=== PATIENT | male | born 1955 | race Caucasian/White ===

== ENCOUNTER 2023-06-01 10:11 | Day surgery (SDC) | payer MEDICARE, SELFPAY ==
[2023-06-01] VITALS (10 sets, daily range): BP systolic 113–161; BP diastolic 72–101; PULSE 61–72; RESP 16–18; TEMP 36.4–36.8; O2SAT 95–100; BMI 28.8
--- NOTE | 2023-06-01 10:51 | ANES.PREANE2 ---
Pre-Anesthetic Assessment Height/Weight: Height 1.73 m Weight 86.183 kg Temp Pulse Resp BP Pulse Ox O2 Del Method 98.2 F 72 18 142/87 95 Room Air 06/01/23 10:06/01/23 10:06/01/23 10:06/01/23 10:06/01/23 10:06/01/23 10:30 Operation Date: 06/01/23 12:00 Proposed Procedures p I&D right index finger with primary closure(Right) - Blair Glasgow DO Familial anesthetic complications: none Was Beta Nilsa taken within 24 hours: N/A Was Clonidine taken within 24 hours: N/A Last intake: Intake Last Liquid Date 05/31/23 Last Liquid Time 22:00 Last Solid Date 05/31/23 Last Solid Time 17:00 Social No alcohol and No tobacco (h/o smoking) Airway Submandibular: within normal limits Cervical ROM: within normal limits Mallampati: Class II Dentition: chipped Comments: Comments: Very poor dentition, missing most Pulmonary Chronic Obstructive Pulmonary Disease CV/HEM Hypertension Metabolic Chronic steroid Musc/skel Lower Back Pain and Osteoarthritis/DJD Neuropsych Chronic pain/opioid Anesthetic Plan ASA status: 3 Anesthesia: MAC Medications/Allergies Home Medications Medication Instructions Recorded Confirmed Last Taken Type alprazolam 0.5 mg tablet 0.5 mg PO PRN 05/20/23 05/31/23 Unknown History baclofen 10 mg tablet 10 mg PO DAILY 05/20/23 05/31/23 Unknown History cyanocobalamin (vitamin B-12) 1,000 mcg IM 05/20/23 05/29/23 Unknown History 1,000 mcg/mL injection solution losartan 50 mg tablet 50 mg PO DAILY 05/20/23 05/31/23 Unknown History meloxicam 15 mg tablet 15 mg PO PRN 05/20/23 05/31/23 Unknown History mupirocin 2 % topical ointment 1 applic topical DAILY 05/20/23 05/31/23 Unknown History pramipexole 0.25 mg tablet 0.25 mg PO BEDTIME 05/20/23 05/31/23 Unknown History prednisone 10 mg tablet 10 mg PO 2XD 05/20/23 05/31/23 Unknown History testosterone cypionate 200 mg/mL 150 mg IM UNK 05/20/23 05/31/23 Unknown History intramuscular oil oxycodone 10 mg tablet 10 mg PO QID PRN Pain 05/29/23 05/31/23 Unknown History ropinirole PO DAILY 05/31/23 Unknown History Allergies Allergy/AdvReac Type Severity Reaction Status Date / Time No Known Allergies Allergy Verified 05/29/23 08:32 [facility] Anesthesia Family History Mother Heart disease Hypertension Father Leukemia Social History Smoking and tobacco/nicotine status: former use of tobacco/nicotine Alcohol intake: former Substance/Drug Use: never Adopted: No Caregiver/support person: No Lives independently: Yes Household members: spouse Data Anesthesia Cardiac Studies: No Data to Display
[2023-06-01] MEDS: sodium chloride 0.9% 1,000 ML 30 ML IV (11:03)
[2023-06-01] MEDS: ketorolac 30 mg/mL INJ IVP (11:07)
[2023-06-01 11:34] LABS: Blood Urea Nitrogen 18 mg/dL (8-23); Calcium 9.3 mg/dL (8.5-10.5); Carbon Dioxide 24 mmol/L (22-29); Chloride 102 mmol/L (98-107); Creatinine Clr Calc Pharmacy 97.0135; Glomerular Filtration Rate 96.7 mL/min (90-130); Glucose 85 mg/dL (65-115); Osmolality Calculated 283 mOsm/kg (285-295); Sodium 136 mmol/L (136-145)
[2023-06-01 11:38] LABS: Anion Gap 14.2 (5-19); Potassium 4.2 mmol/L (3.5-5.1)
--- NOTE | 2023-06-01 12:31 | W.PM.OPSUD ---
Surgery/Procedure H&P Update DATE OF PROCEDURE: June 01, 2023 DATE H&P PERFORMED: 05/29/23 H&P UPDATE INFORMATION: I have reviewed H&P completed within last 30 days, I have examined patient prior to procedure and No changes to prior documentation PREOP DIAGNOSIS: Right index finger laceration with wound dehiscence PRIMARY INDICATION FOR PROCEDURE: Right index finger laceration with wound dehiscence PLANNED PROCEDURE: Operation Date: 06/01/23 12:00 Proposed Procedures p I&D right index finger with primary closure(Right) - Blair Glasgow DO
[2023-06-01] MEDS: ceFAZolin 2,000 MG in sodium chloride 0.9% (plus) 50 ML 100 MG IV (12:37)
[2023-06-01] MEDS: lidocaine-epi 2% 20 mL INJ 10 ML INJECTION (13:08)
[2023-06-01] MEDS: sodium bicarbonate 4.2% 0.5 mEq/mL SDV 5mL XX (13:08)
--- NOTE | 2023-06-01 13:33 | W.PM.BPON ---
Date of Procedure: 06/01/2023 Surgeon: Blair Glasgow DO Peanut Butter Maker(s): Mendoza Glasgow PA-C Procedure(s) performed: Right index finger dorsal hand irrigation and debridement (8 cm x 3 cm x 1 cm) Right dorsal hand foreign body removal Right index finger extensor tendons tenolysis Right dorsal hand primary closure Right wrist and hand volar splint application Findings of the procedure(s): Patient was found to have fragments of metal within the wound bed and no benny purulence or drainage or fluid was noted patient had hypertrophic scar and hypertrophic skin edges which were freshened up appropriate debridement was performed and patient underwent procedure without complications with I&D and primary closure as well as foreign body removal with splint application. Estimated blood loss: 1 mL Specimen(s) removed: None Post-operative diagnosis: Right index finger laceration with wound dehiscence
--- NOTE | 2023-06-01 13:37 | PM.OP ---
Operative Report Date of procedure: June 01, 2023 Pre-op diagnosis: Right hand wound dehiscence Post-op diagnosis: Right hand wound dehiscence with foreign body and extensor tendon adhesions Procedure done: Right index finger dorsal hand irrigation and debridement (8 cm x 3 cm x 1 cm) Right dorsal hand foreign body removal Right index finger extensor tendons tenolysis Right dorsal hand primary closure Right wrist and hand volar splint application Surgeon: Blair Glasgow DO Brimming Machine Operator: Mendoza Glasgow PA-C: ANGELA was necessary for assistance in this case with hand positioning to execute the procedure, retraction and protection of neurovascular structures as well as to assist with wound closure and dressing application. Anesthesia: MAC (Local) and Local Estimated blood loss: 1 cc 32min IV fluids: 500 mL Complications: None Findings: See operative report narrative Condition: stable Disposition: same day Brief History: Patient seen and examined the outpatient setting he had a laceration from a pulp grinder feeder dorsal aspect of his right hand over zone 5 there is no extensor tendon involvement this was sutured multiple times he has had persistent wound dehiscence due to this he has hypertrophic skin edges there is no purulent drainage but continues to have open wound and at this point in time would recommend surgical intervention as he is failed conservative approach for localized wound care and has had multiple bouts where this has become infected and cellulitis associated. Noninfectious at this point time with documents in detail he understands and sounds procedure risk benefits complication alternatives of surgery and through shared decision make elects proceed with right hand irrigation debridement and primary wound closure. All questions answered and elects proceed with surgical intervention. Procedure: Patient seen and examined in the preoperative holding area. Consent was reviewed and signed with patient correct extremity marked. Patient then was seen evaluated anesthesia once cleared for surgery stand back to the operative suite kept on the [facility] armboard applied to the right upper extremity patient underwent anesthesia per anesthesia department patient appropriate secured to the bed all bony prominences well-padded patient appropriate secured to the bed. Patient had a nonsterile tourniquet applied to the right upper arm was properly anesthetized the right upper extremities then prepped and draped in orthopedic fashion. Final timeout performed. Patient received appropriate preoperative antibiotics. Patient underwent local anesthesia prior to Esmarch tourniquet being applied. Esmarch was then used and tourniquet was insufflated to 250 mmHg. I planned on extending the incision thinks ellipsing out the previous wound hypertrophic skin edges. Sharp scalpel excision was made in Keshav fashion extending the incision proximally and distally. I ellipsed out the wound edges to healthy bleeding tissue. I then subsequently created full-thickness skin flaps. Identified the extent of the injury. No purulence or abscess was noted and there is no fluid to culture.. There was no injury to the extensor tendons to the index finger I found these proximally and then traced this distally as there was significant scar tissue and adhesions along the extensor tendons this was excised with sharp scalpel and dissection scissors. I did note there was 2 small pieces of metal noted within the wound bed foreign bodies were subsequently removed. I then at this point performed extensor tendon tenolysis foreign body removal and then completed the I&D of the wound bed which was 8 cm x 3 cm x 1 cm in depth. This was all excised devitalized tissue of scar tissue fibrinous slough as well as skin edges. Thorough irrigation was performed. This point wound bed was then subsequently closed primarily with interrupted nylon suture. Xeroform was applied 4 x 4's Curlex Sof-Rol and a volar splint to hold the fingers in extension while the incision heals as patient's had issues with wound dehiscence here in the past. Patient was awakened from anesthesia and taken back in stable condition. Disposition: Patient taken back in send condition recovering well received appropriate discharge instructions postoperative antibiotics for infection prophylaxis maintain splint until follow-up as well as pain control. Patient understands agrees with current plan. All questions answered.
--- NOTE | 2023-06-01 13:47 | PM.PACU ---
PACU note Narrative: Patient is a 68-year-old male that just underwent a right index finger irrigation and debridement. Patient transferred to PACU in stable condition. Pain is well controlled. Splint and Dressing on hand is dry and in place. Patient's fingers are warm and well-perfused. Patient can wiggle fingers. normal cap refill under 2 seconds. Patient has normal elbow range of motion. Unable to assess sensation due to residual localized anesthetic. Exam: awake Disposition: discharged
--- NOTE | 2023-06-01 13:55 | ANE.PACU2 ---
Inpatient post-anesthesia follow up: Airway intact: Yes Vital signs: Temperature 98.2 F Pulse Rate 72 Respiratory Rate 18 Blood Pressure 142/87 Pulse Oximetry 95 Oxygen Delivery Me thod Room Air Oxygen Flow Rate Fraction of Inspir ed Oxygen Hydration adequate: Yes Nausea and vomiting: No Pain level: 1 Mental status: Baseline
[2023-06-01] MEDS: HYDROcodone-acetaminophen 5-325 mg Tablet 1 TAB PO (14:48)
== END 2023-06-01 15:10 | disposition home or self-care (01) ==
PROVIDERS: PCP Family Medicine; Visit Provider Student in an Organized Health Care Education/Training Program
PROC: (CPT 10121; principal; 2023-06-01 12:00)
DX: T81.33XA Disruption of traumatic injury wound repair, initial encounter (principal); S61.411D Laceration without foreign body of right hand, subsequent encounter; W31.9XXD Contact with unspecified machinery, subsequent encounter; J44.9 Chronic obstructive pulmonary disease, unspecified; I10 Essential (primary) hypertension; Z79.52 Long term (current) use of systemic steroids; G89.29 Other chronic pain; Z79.891 Long term (current) use of opiate analgesic; Z87.891 Personal history of nicotine dependence
CPT/HCPCS: 10121; 26445; 36415; 80048; J0690; J1885; J2704; J3010; J7030

== ENCOUNTER → 2023-06-22 08:34 | Outpatient (BNVA) | payer MEDICARE, SELFPAY | PROVIDERS: PCP Family Medicine; Visit Provider Physician Assistant | DX: Z98.890 Other specified postprocedural states (principal); S61.411D Laceration without foreign body of right hand, subsequent encounter; X58.XXXD Exposure to other specified factors, subsequent encounter | CPT/HCPCS: 99024 ==